=== PATIENT | female | born 1940 | race Caucasian/White ===

== ENCOUNTER 2025-03-07 12:29 | Observation (INO) | payer MEDICARE ==
[2025-03-07 14:18] LABS: BASOPHIL % 0.4 % (0.1-1.2); Basophil (Absolute #) 0.05 x10^3/uL (0.01-0.08); Eosinophil (Absolute #) 0.05 x10^3/uL (0.04-0.36); Hematocrit 45.4 % (34.1-44.9); Hemoglobin 14.9 g/dL (11.2-15.7); IMMATURE GRAN # 0.06 x10^3u/L (0.001-0.031); IMMATURE GRAN % 0.5 % (0.001-0.429); Lymphocyte (Absolute #) 1.00 x10^3/uL (1.18-3.74); Mean Corpuscular Hemoglobin 32.2 pg (25.6-32.2); Mean Corpuscular Hgb Concent. 32.8 g/dL (32.2-35.5); Monocyte (Absolute #) 0.73 x10^3/uL (0.24-0.86); NUCLEATED RBC # 0.00 x10^3u/L (0.00-0.012); NUCLEATED RBC % 0.0 % (0.00-0.2); Platelet Count 310 x10^3/uL (182-369); Red Blood Count 4.63 x10^6/uL (3.93-5.22); White Blood Count 11.7 x10^3/uL (3.98-10.04)
--- NOTE | 2025-03-07 14:39 | ERPHSYRPT ---
- History of Present Illness Time Seen by Provider: 03/07/25 13:40 Source: patient Exam Limitations: no limitations Patient Subjective Stated Complaint: Pt. states, "I feel like I'm sick to my stomach and could vomit. It also dinero when I try to pee.". daughter reports that pt. has early onset dementia and forgets to eat and drink. She believes pt. is dehydrated. Triage Nursing Assessment: Pt. arrives to room via W/C, attempted to void prior to going to room but could not produce any urine. Alert and Ox1, confused to place and time. Skin P/W/D, slightly tented. Physician History: Patient is an 84-year-old female history of hypertension and dementia presents to our ED for evaluation of nausea. No vomiting. Patient states her symptoms started yesterday and has gone into today. Patient describes dysuria as well. He family states that patient has poor p.o. intake. They believe that patient forgets to eat and drink. Daughter is a adjunct philosophy faculty and thinks that her mother is dehydrated. Patient denies pain. No fever. No back pain. No trauma. She voices no other complaints or concerns at this time. Patient declined pain medication. Portions of this note were created with voice recognition technology. There may be grammatical, spelling, punctuation or sound alike errors Timing/Duration: today Severity: moderate Modifying Factors: Improves With: nothing Associated Symptoms: denies symptoms Allergies/Adverse Reactions: No Known Drug Allergies Allergy (Unverified 03/07/25 12:59) Home Medications: Hydrochlorothiazide 25 mg [hydroDIURIL 25 MG] 25 mg PO DAILY 03/07/25 [History] Meloxicam 15 mg [Meloxicam 15 MG] 15 mg PO DAILY 03/07/25 [History] Metoprolol Tartrate 50 mg [Lopressor 50 MG] 50 mg PO DAILY 03/07/25 [History] Spironolactone 25 mg PO DAILY 03/07/25 [History] Hx Tetanus, Diphtheria Vaccination/Date Given: Yes Hx Influenza Vaccination/Date Given: Yes Hx Pneumococcal Vaccination/Date Given: Yes Immunizations Up to Date: Yes Travel Risk - International Travel Have you traveled outside of the country in past 3 weeks: No - Emerging Infectious Disease Are you exhibiting symptoms associated with any current EIDs: No - Review of Systems All Other Systems: Reviewed and Negative - Past Medical History Neurological History: Other Cardiac History: Hypertension Respiratory History: No Pertinent History Endocrine Medical History: No Pertinent History Musculoskeletal History: Osteoarthritis Other Medical History: PATIENT ORIENTED TO NAME, DATE OF AND LOCATION - KNEW SHE WAS AT THE HOSPITAL BUT DID NOT RECOGNIZE OR RECALL BEING IN THERAPY PREVIOUSLY. PATIENT WAS SEEN FOR 11 VISITS OF THERAPY IN OCTOBER 2023 DUE TO FALLS AND UNSTEADY GAIT. PATIENT NOT ORIENTED TO MONTH OR YEAR (REPORTED JULY AND SEASON WAS WINTER "THOUGH IT'S NOT BEEN A BAD WINTER" AND YEAR 1974. PATIENT DID KNOW AGE WAS 84 AND YEAR WAS 1940. PATIENT REPORTS INDEP WITH COOKING, CLEANING AND LAUNDRY. REPORTS FAMILY HELPS WITH GROCERY SHOPPING. PATIENT DOES NOT FEEL LIKE SHE NEEDS "TO DO THIS" AND "I WON'T BE HERE LONG BECAUSE I'M NOT GOING TO LET IT GET ME DOWN". - Past Surgical History Past Surgical History: Yes Gastrointestinal: Appendectomy, Cholecystectomy Female Surgical History: Section - Social History Smoking Status: Never smoker Exposure to second hand smoke: No Drug Use: none - Social Determinants of Health Will the patient participate in the screening: Declined to provide - Nursing Vital Signs Nursing Vital Signs: Initial Vital Signs Temperature 98.2 F 03/07/25 12:30 Pulse Rate 86 03/07/25 12:30 Respiratory Rate 14 03/07/25 12:30 Blood Pressure 153/86 03/07/25 12:30 O2 Sat by Pulse Oximetry 95 03/07/25 12:30 Pain Scale Pain Intensity 0 - Physical Exam General Appearance: no apparent distress, alert Eye Exam: PERRL/EOMI, eyes nml inspection Ears, Nose, Throat Exam: normal ENT inspection, pharynx normal, moist mucous membranes Neck Exam: normal inspection, full range of motion Respiratory Exam: normal breath sounds, lungs clear, airway intact, No respiratory distress Cardiovascular Exam: regular rate/rhythm, normal heart sounds, normal peripheral pulses Gastrointestinal/Abdomen Exam: soft, normal bowel sounds, No tenderness, No mass Back Exam: normal inspection, normal range of motion, No CVA tenderness, No vertebral tenderness Extremity Exam: normal inspection, normal range of motion, pelvis stable Neurologic Exam: alert, oriented x 3, cooperative, normal mood/affect, sensation nml, No motor deficits Skin Exam: normal color, warm, dry, No rash Lymphatic Exam: No adenopathy SpO2 Interpretation: normal SpO2: 95 O2 Delivery: Room Air - Course Nursing assessment & vital signs reviewed: Yes EKG Interpreted by Me: RATE (78), Sinus Rhythm, NORMAL AXIS, NORMAL INTERVALS, NORMAL QRS Ordered Tests: Active Orders 24 hr Category Date Time Status Asphalt Blender STAT Care 03/07/25 14:05 Active EKG-ER Only STAT Care 03/07/25 14:04 Active IV Insertion STAT Care 03/07/25 14:04 Active Pulse Oximetry (ED) STAT Care 03/07/25 14:04 Active CBC W DIFF Stat Lab 03/07/25 14:10 Completed CMP Stat Lab 03/07/25 14:10 Completed CULTURE,URINE Stat Lab 03/07/25 15:47 Received NT PRO BNPII Stat Lab 03/07/25 14:10 Completed TROPONIN Q4H Lab 03/07/25 14:10 Completed TROPONIN Q4H Lab 03/07/25 17:50 Received TROPONIN Q4H Lab 03/07/25 22:15 Ordered UA W/RFX UR CULTURE Stat Lab 03/07/25 15:47 Completed Transfer Order Routine Transfer 03/07/25 Ordered Medication Summary Generic Name Dose Route Start Last Admin Trade Name Freq PRN Reason Stop Dose Admin Sodium Chloride 1,000 mls @ 100 mls/hr 03/07/25 14:15 03/07/25 14:18 Sodium Chloride 0.9% 1000 Ml IV 04/06/25 14:14 100 mls/hr .Q10H CRISTINA Administration Discontinued Medications Generic Name Dose Route Start Last Admin Trade Name Freq PRN Reason Stop Dose Admin Ceftriaxone Sodium 1 gm in 100 mls @ 200 mls/hr 03/07/25 16:43 03/07/25 17:19 Rocephin 1 Gm / 100 Ml Nacl IV 03/07/25 17:12 Infused STAT ONE Infusion Ceftriaxone Sodium Confirm 03/07/25 16:45 Rocephin 1 Gm / 100 Ml Nacl Administered 03/07/25 16:46 Dose 1 gm in 100 mls @ ud IV .STK-MED ONE Lab/Rad Data: Laboratory Result Diagrams 03/07/25 14:10 03/07/25 14:10 Laboratory Results 03/07/25 03/07/25 03/07/25 Range/Units 15:47 14:10 14:10 WBC (3.98-10.04) x10^3/uL RBC (3.93-5.22) x10^6/uL Hgb (11.2-15.7) g/dL Hct (34.1-44.9) % MCV (79.4-94.8) fL MCH (25.6-32.2) pg MCHC (32.2-35.5) g/dL RDW (11.7-14.4) % Plt Count (182-369) x10^3/uL MPV (9.4-12.3) fL Gran % (34.0-71.1) % Immature Gran % (Auto) (0.001-0.429) % Nucleat RBC Rel Count (0.00-0.2) % Eos # (Auto) (0.04-0.36) x10^3/uL Immature Gran # (Auto) (0.001-0.031) x10^3u/L Absolute Lymphs (auto) (1.18-3.74) x10^3/uL Absolute Monos (auto) (0.24-0.86) x10^3/uL Absolute Nucleated RBC (0.00-0.012) x10^3u/L Lymphocytes % (19.3-51.7) % Monocytes % (4.7-12.5) % Eosinophils % (0.7-5.8) % Basophils % (0.1-1.2) % Absolute Granulocytes (1.56-6.13) x10^3/uL Basophils # (0.01-0.08) x10^3/uL Sodium 139 (135-145) mmol/L Potassium 4.0 (3.5-5.1) mmol/L Chloride 101 (98-107) mmol/L Carbon Dioxide 28 (22-30) mmol/L Anion Gap 13.5 (5-15) MEQ/L BUN 26 H (7-17) mg/dL Creatinine 1.30 H (0.52-1.04) mg/dL Estimated GFR 40.1 ML/MIN Glucose 110 H (74-106) mg/dL Calcium 9.9 (8.4-10.2) mg/dL Total Bilirubin 1.10 (0.2-1.3) mg/dL AST 31 (14-36) U/L ALT 22 (0-35) U/L Alkaline Phosphatase 87 (38-126) U/L Troponin I < 0.012 (0.000-0.033) ng/mL NT-Pro-B Natriuret Pep 590 (<300) pg/mL Serum Total Protein 6.7 (6.3-8.2) g/dL Albumin 4.2 (3.5-5.0) g/dL Urine Color Yellow (Yellow) Urine Appearance Cloudy A (Clear) Urine pH 5.5 (4.6-8.0) Ur Specific [place] 1.020 (1.005-1.030) Urine Protein 30 (Negative) Urine Glucose (UA) Negative (Negative) mg/dL Urine Ketones 15 A (Negative) Urine Blood Large A (Negative) Urine Nitrite Positive A (Negative) Urine Bilirubin Negative (Negative) Urine Urobilinogen 1.0 A (0.2) mg/dL Ur Leukocyte Esterase Small A (Negative) U Hyaline Cast (Auto) NONE SEEN (0-2) /LPF Urine Microscopic RBC >100 A (0-5) /HPF Urine Microscopic WBC 3-5 (0-5) /HPF Ur Epithelial Cells None Seen (None Seen) /HPF Urine Bacteria Many A (None Seen) /HPF Urine Culture Reflexed YES (NO) 03/07/25 Range/Units 14:10 WBC 11.7 H (3.98-10.04) x10^3/uL RBC 4.63 (3.93-5.22) x10^6/uL Hgb 14.9 (11.2-15.7) g/dL Hct 45.4 H (34.1-44.9) % MCV 98.1 H (79.4-94.8) fL MCH 32.2 (25.6-32.2) pg MCHC 32.8 (32.2-35.5) g/dL RDW 12.8 (11.7-14.4) % Plt Count 310 (182-369) x10^3/uL MPV 11.6 (9.4-12.3) fL Gran % 83.8 H (34.0-71.1) % Immature Gran % (Auto) 0.5 H (0.001-0.429) % Nucleat RBC Rel Count 0.0 (0.00-0.2) % Eos # (Auto) 0.05 (0.04-0.36) x10^3/uL Immature Gran # (Auto) 0.06 H (0.001-0.031) x10^3u/L Absolute Lymphs (auto) 1.00 L (1.18-3.74) x10^3/uL Absolute Monos (auto) 0.73 (0.24-0.86) x10^3/uL Absolute Nucleated RBC 0.00 (0.00-0.012) x10^3u/L Lymphocytes % 8.6 L (19.3-51.7) % Monocytes % 6.3 (4.7-12.5) % Eosinophils % 0.4 L (0.7-5.8) % Basophils % 0.4 (0.1-1.2) % Absolute Granulocytes 9.76 H (1.56-6.13) x10^3/uL Basophils # 0.05 (0.01-0.08) x10^3/uL Sodium (135-145) mmol/L Potassium (3.5-5.1) mmol/L Chloride (98-107) mmol/L Carbon Dioxide (22-30) mmol/L Anion Gap (5-15) MEQ/L BUN (7-17) mg/dL Creatinine (0.52-1.04) mg/dL Estimated GFR ML/MIN Glucose (74-106) mg/dL Calcium (8.4-10.2) mg/dL Total Bilirubin (0.2-1.3) mg/dL AST (14-36) U/L ALT (0-35) U/L Alkaline Phosphatase (38-126) U/L Troponin I (0.000-0.033) ng/mL NT-Pro-B Natriuret Pep (<300) pg/mL Serum Total Protein (6.3-8.2) g/dL Albumin (3.5-5.0) g/dL Urine Color (Yellow) Urine Appearance (Clear) Urine pH (4.6-8.0) Ur Specific [place] (1.005-1.030) Urine Protein (Negative) Urine Glucose (UA) (Negative) mg/dL Urine Ketones (Negative) Urine Blood (Negative) Urine Nitrite (Negative) Urine Bilirubin (Negative) Urine Urobilinogen (0.2) mg/dL Ur Leukocyte Esterase (Negative) U Hyaline Cast (Auto) (0-2) /LPF Urine Microscopic RBC (0-5) /HPF Urine Microscopic WBC (0-5) /HPF Ur Epithelial Cells (None Seen) /HPF Urine Bacteria (None Seen) /HPF Urine Culture Reflexed (NO) - Progress Progress: improved Progress Note: Patient is an 84-year-old female history of hypertension and dementia presents to our ED for evaluation of nausea. No vomiting. Physical exam shows a frail appearing female. However she is alert and oriented x 4. Patient in no distress. Workup revealed a significant urinary tract infection. Rocephin administered. Patient is dehydrated with acute renal injury. IV fluids infusing. Has a leukocytosis of 11. Creatinine increased from 0.88-1.30. Patient will require hospitalization for IV antibiotics and hydration. Plan of care discussed with patient and her daughter who is at the bedside. They agree to admission at [facility] for further evaluation and treatment. Patient declined pain medication. Portions of this note were created with voice recognition technology. There may be grammatical, spelling, punctuation or sound alike errors History obtained from patient and daughter who is at the bedside. Differential diagnosis includes UTI, pyelonephritis, sepsis, dehydration Complexity of problem addressed is moderate acute complicated. No critical care time. Complex of data reviewed and analyzed as extensive. Test ordered test reviewed results analyzed and interpreted by Dr. Gerard. Results were correlated clinically with history and physical exam. Management discussed with hospitalist who accepts admission to observation. Risk of complication and or risk of morbidity/mortality of patient management is high. Patient requires hospitalization for further evaluation and treatment. Vital stable. Time spent admit patient is approximately 15 minutes. Plan of care established for shared decision making. No social determinants of health present to impede follow-up. Portions of this note were created with voice recognition technology. There may be grammatical, spelling, punctuation or sound alike errors 03/07/25 17:40 : Accepts admission at 5:55 PM 03/07/25 17:55 Counseled pt/family regarding: diagnosis, need for follow-up - Departure Departure Disposition: Observation Clinical Impression: Dehydration, UTI (urinary tract infection), Nausea, Generalized weakness, Leukocytosis Condition: Stable Critical Care Time: No Referrals: KIERSTEN ALCANTARA, LUCERO [Primary Care Provider, [facility]] - Follow up/PCP as directed
[2025-03-07 14:40] LABS: NT PRO BNPII 590 pg/mL (<300); TROPONIN < 0.012 ng/mL (0.000-0.033)
[2025-03-07 14:49] LABS: Calcium 9.9 mg/dL (8.4-10.2); Carbon Dioxide 28.0 mmol/L (22-30); Creatinine 1 1.3 mg/dL (0.52-1.04); EST GLOMERULAR FILTRATION RATE 40.1 ML/MIN; Glucose 110.0 mg/dL (74-106); Potassium 4.0 mmol/L (3.5-5.1); SGOT/AST 31.0 U/L (14-36); SGPT/ALT 22.0 U/L (0-35); Total Protein 6.7 g/dL (6.3-8.2)
[2025-03-07 16:13] LABS: Glucose, Urine Negative (Negative); Protein,Urine Dip 30 (Negative)
[2025-03-07 16:14] LABS: RBC >100 /HPF (0-5)
[2025-03-07] MEDS ORDERED: ROCEPHIN 1 GM / 100 ML NaCl 1 GM/100 ML IVPB IV ONE (16:45)
[2025-03-07] MEDS: ROCEPHIN 1 GM / 100 ML NaCl 1 GM/100 ML IVPB IV ONE (16:46)
--- NOTE | 2025-03-07 19:40 | PCM.HP ---
History of Present Illness - Chief Complaint Chief Complaint: Generalized weakness, urinary tract infection History of Present Illness: is a 84 year old female from home with PMH of hypertension, dementia, OA, recurrent falls/unsteady gait presented due to nausea decreased oral intake, and dysuria. Patient was reporting that she felt nauseaous and felt like vomiting. She denies actually vomiting. It is unclear when the patient's symptoms started as she has dementia and is not able to provide a reliable history. She thinks symptoms started earlier today but at bedside said she's been unwell for 3 days. He said she fell last Thursday when her legs gave out. She did not lose consciousness before or after the fall. Patient does not recall having a fall. She was accompanied earlier in that ER by her daughter who had concerns that the patient was forgetting to eat and drink and appeared dehydrated. Patient denies having fever, chills, cough, chest pain, abdominal pain, diarrhea, constipation, melena, rectal bleeding. Denies any recent trauma, injuries or falls. She was noted to have elevated creatinine in the ER of 1.3 while baseline is around 0.9. CBC was notable for leukocytosis of 11.7 Also was started on ceftriaxone for UTI. Has otherwise been hemodynamically stable. - Review of Systems Constitutional: Lethargy, Weakness Eyes: No Symptoms Ears, Nose, & Throat: No Symptoms Respiratory: No Symptoms Cardiac: No Symptoms Abdominal/Gastrointestinal: No Symptoms, Nausea, Appetite Changes Genitourinary Symptoms: Dysuria, Frequency Musculoskeletal: Fall Skin: No Symptoms Neurological: Lethargy Psychological: No Symptoms Endocrine: No Symptoms Hematologic/Lymphatic: No Symptoms Immunological/Allergic: No Symptoms All Other Systems: Reviewed and Negative Medications & Allergies Home Medications: Home Medication List Hydrochlorothiazide 25 mg [hydroDIURIL 25 MG] 25 mg PO DAILY 03/07/25 [History Confirmed 03/07/25] Meloxicam 15 mg [Meloxicam 15 MG] 15 mg PO DAILY 03/07/25 [History Confirmed 03/07/25] Metoprolol Tartrate 50 mg [Lopressor 50 MG] 50 mg PO DAILY 03/07/25 [History Confirmed 03/07/25] Spironolactone 25 mg PO DAILY 03/07/25 [History Confirmed 03/07/25] Allergies/Adverse Reactions: Allergies Allergy/AdvReac Type Severity Reaction Status Date / Time No Known Drug Allergies Allergy Unverified 03/07/25 12:59 - Past Medical History Past Medical History: Yes Neurological History: Other ENT History: No Pertinent History Cardiac History: Hypertension Respiratory History: No Pertinent History Endocrine Medical History: No Pertinent History Musculoskelatal History: Osteoarthritis GI Medical History: No Pertinent History History: No Pertinent History Pyscho-Social History: No Pertinent History Reproductive Disorders: No Pertinent History Comment: PATIENT ORIENTED TO NAME, DATE OF AND LOCATION - KNEW SHE WAS AT THE HOSPITAL BUT DID NOT RECOGNIZE OR RECALL BEING IN THERAPY PREVIOUSLY. PATIENT WAS SEEN FOR 11 VISITS OF THERAPY IN OCTOBER 2023 DUE TO FALLS AND UNSTEADY GAIT. PATIENT NOT ORIENTED TO MONTH OR YEAR (REPORTED JULY AND SEASON WAS WINTER "THOUGH IT'S NOT BEEN A BAD WINTER" AND YEAR 1974. PATIENT DID KNOW AGE WAS 84 AND YEAR WAS 1940. PATIENT REPORTS INDEP WITH COOKING, CLEANING AND LAUNDRY. REPORTS FAMILY HELPS WITH GROCERY SHOPPING. PATIENT DOES NOT FEEL LIKE SHE NEEDS "TO DO THIS" AND "I WON'T BE HERE LONG BECAUSE I'M NOT GOING TO LET IT GET ME DOWN". - Past Surgical History Past Surgical History: Yes Neuro Surgical History: No Pertinent History Cardiac History: No Pertinent History Respiratory Surgery: No Pertinent History GI Surgical History: Appendectomy, Cholecystectomy Genitourinary Surgical Hx: No Pertinent History Musculskeletal Surgical Hx: No Pertinent History Female Surgical History: Section - Social History Smoking Status: Never smoker Exposure to second hand smoke: No Alcohol: None Drug Use: none - Social Determinants of Health Will the patient participate in the screening: Declined to provide - Physical Exam Vital Signs: Vital Signs - 24 hr Temp Pulse Resp BP BP Pulse Ox 03/07/25 18:37 98.2 F 92 H 16 141/70 96 03/07/25 18:00 93 H 23 145/79 96 03/07/25 17:56 95 03/07/25 17:30 90 25 H 153/92 98 03/07/25 17:00 87 20 133/77 96 03/07/25 16:31 85 23 155/74 96 03/07/25 16:01 82 19 143/98 97 03/07/25 15:30 85 27 H 160/81 95 03/07/25 15:00 82 22 145/88 03/07/25 14:30 80 27 H 159/90 95 03/07/25 14:04 95 03/07/25 14:01 76 25 H 152/107 97 03/07/25 13:30 75 22 162/100 162/100 95 03/07/25 13:00 81 25 H 148/106 97 03/07/25 12:30 98.2 F 86 14 153/86 95 General Appearance: no apparent distress Neurologic Exam: alert, cooperative, normal mood/affect, disoriented, confusion Eye Exam: PERRL/EOMI, eyes nml inspection Ears, Nose, Throat Exam: moist mucous membranes Neck Exam: normal inspection Respiratory Exam: normal breath sounds, lungs clear Cardiovascular Exam: regular rate/rhythm, normal heart sounds Gastrointestinal/Abdomen Exam: soft, normal bowel sounds Back Exam: normal inspection Extremity Exam: normal inspection Skin Exam: normal color Results - Labs Lab/Micro Results: Lab Results-Last 24 Hours 03/07/25 03/07/25 03/07/25 Range/Units 14:10 14:10 14:10 WBC 11.7 H (3.98-10.04) x10^3/uL RBC 4.63 (3.93-5.22) x10^6/uL Hgb 14.9 (11.2-15.7) g/dL Hct 45.4 H (34.1-44.9) % MCV 98.1 H (79.4-94.8) fL MCH 32.2 (25.6-32.2) pg MCHC 32.8 (32.2-35.5) g/dL RDW 12.8 (11.7-14.4) % Plt Count 310 (182-369) x10^3/uL MPV 11.6 (9.4-12.3) fL Gran % 83.8 H (34.0-71.1) % Immature Gran % (Auto) 0.5 H (0.001-0.429) % Nucleat RBC Rel Count 0.0 (0.00-0.2) % Eos # (Auto) 0.05 (0.04-0.36) x10^3/uL Immature Gran # (Auto) 0.06 H (0.001-0.031) x10^3u/L Absolute Lymphs (auto) 1.00 L (1.18-3.74) x10^3/uL Absolute Monos (auto) 0.73 (0.24-0.86) x10^3/uL Absolute Nucleated RBC 0.00 (0.00-0.012) x10^3u/L Lymphocytes % 8.6 L (19.3-51.7) % Monocytes % 6.3 (4.7-12.5) % Eosinophils % 0.4 L (0.7-5.8) % Basophils % 0.4 (0.1-1.2) % Absolute Granulocytes 9.76 H (1.56-6.13) x10^3/uL Basophils # 0.05 (0.01-0.08) x10^3/uL Sodium 139 (135-145) mmol/L Potassium 4.0 (3.5-5.1) mmol/L Chloride 101 (98-107) mmol/L Carbon Dioxide 28 (22-30) mmol/L Anion Gap 13.5 (5-15) MEQ/L BUN 26 H (7-17) mg/dL Creatinine 1.30 H (0.52-1.04) mg/dL Estimated GFR 40.1 ML/MIN Glucose 110 H (74-106) mg/dL Calcium 9.9 (8.4-10.2) mg/dL Total Bilirubin 1.10 (0.2-1.3) mg/dL AST 31 (14-36) U/L ALT 22 (0-35) U/L Alkaline Phosphatase 87 (38-126) U/L Troponin I < 0.012 (0.000-0.033) ng/mL NT-Pro-B Natriuret Pep 590 (<300) pg/mL Serum Total Protein 6.7 (6.3-8.2) g/dL Albumin 4.2 (3.5-5.0) g/dL Urine Color (Yellow) Urine Appearance (Clear) Urine pH (4.6-8.0) Ur Specific [place] (1.005-1.030) Urine Protein (Negative) Urine Glucose (UA) (Negative) mg/dL Urine Ketones (Negative) Urine Blood (Negative) Urine Nitrite (Negative) Urine Bilirubin (Negative) Urine Urobilinogen (0.2) mg/dL Ur Leukocyte Esterase (Negative) U Hyaline Cast (Auto) (0-2) /LPF Urine Microscopic RBC (0-5) /HPF Urine Microscopic WBC (0-5) /HPF Ur Epithelial Cells (None Seen) /HPF Urine Bacteria (None Seen) /HPF Urine Culture Reflexed (NO) 03/07/25 03/07/25 Range/Units 15:47 17:50 WBC (3.98-10.04) x10^3/uL RBC (3.93-5.22) x10^6/uL Hgb (11.2-15.7) g/dL Hct (34.1-44.9) % MCV (79.4-94.8) fL MCH (25.6-32.2) pg MCHC (32.2-35.5) g/dL RDW (11.7-14.4) % Plt Count (182-369) x10^3/uL MPV (9.4-12.3) fL Gran % (34.0-71.1) % Immature Gran % (Auto) (0.001-0.429) % Nucleat RBC Rel Count (0.00-0.2) % Eos # (Auto) (0.04-0.36) x10^3/uL Immature Gran # (Auto) (0.001-0.031) x10^3u/L Absolute Lymphs (auto) (1.18-3.74) x10^3/uL Absolute Monos (auto) (0.24-0.86) x10^3/uL Absolute Nucleated RBC (0.00-0.012) x10^3u/L Lymphocytes % (19.3-51.7) % Monocytes % (4.7-12.5) % Eosinophils % (0.7-5.8) % Basophils % (0.1-1.2) % Absolute Granulocytes (1.56-6.13) x10^3/uL Basophils # (0.01-0.08) x10^3/uL Sodium (135-145) mmol/L Potassium (3.5-5.1) mmol/L Chloride (98-107) mmol/L Carbon Dioxide (22-30) mmol/L Anion Gap (5-15) MEQ/L BUN (7-17) mg/dL Creatinine (0.52-1.04) mg/dL Estimated GFR ML/MIN Glucose (74-106) mg/dL Calcium (8.4-10.2) mg/dL Total Bilirubin (0.2-1.3) mg/dL AST (14-36) U/L ALT (0-35) U/L Alkaline Phosphatase (38-126) U/L Troponin I < 0.012 (0.000-0.033) ng/mL NT-Pro-B Natriuret Pep (<300) pg/mL Serum Total Protein (6.3-8.2) g/dL Albumin (3.5-5.0) g/dL Urine Color Yellow (Yellow) Urine Appearance Cloudy A (Clear) Urine pH 5.5 (4.6-8.0) Ur Specific [place] 1.020 (1.005-1.030) Urine Protein 30 (Negative) Urine Glucose (UA) Negative (Negative) mg/dL Urine Ketones 15 A (Negative) Urine Blood Large A (Negative) Urine Nitrite Positive A (Negative) Urine Bilirubin Negative (Negative) Urine Urobilinogen 1.0 A (0.2) mg/dL Ur Leukocyte Esterase Small A (Negative) U Hyaline Cast (Auto) NONE SEEN (0-2) /LPF Urine Microscopic RBC >100 A (0-5) /HPF Urine Microscopic WBC 3-5 (0-5) /HPF Ur Epithelial Cells None Seen (None Seen) /HPF Urine Bacteria Many A (None Seen) /HPF Urine Culture Reflexed YES (NO) Assessment/Plan (1) UTI (urinary tract infection) Current Visit: Yes Status: Acute Qualifiers: Urinary tract infection type: acute cystitis Hematuria presence: with hematuria Qualified Code(s): N30.01 - Acute cystitis with hematuria Assessment & Plan: Continue ceftriaxone Follow-up urine culture Code(s): N39.0 - URINARY TRACT INFECTION, SITE NOT SPECIFIED (2) LORAINE (acute kidney injury) Current Visit: Yes Status: Acute Assessment & Plan: Likely 2/2 hypovolemia and dehydration IV fluids Monitor I&Os Avoid nephrotoxic medications Code(s): N17.9 - ACUTE KIDNEY FAILURE, UNSPECIFIED (3) Essential (primary) hypertension Current Visit: Yes Status: Chronic Assessment & Plan: Continue oral antihypertensives Code(s): I10 - ESSENTIAL (PRIMARY) HYPERTENSION (4) Generalized weakness Current Visit: Yes Status: Acute Assessment & Plan: PT/OT evaluation Code(s): R53.1 - WEAKNESS (5) Frequent falls Current Visit: Yes Status: Acute Assessment & Plan: PT/OT evaluation Code(s): R29.6 - REPEATED FALLS (6) Nausea Current Visit: Yes Status: Acute Assessment & Plan: Zofran PRN, supportive care Advance diet as tolerated Code(s): R11.0 - NAUSEA (7) Leukocytosis Current Visit: Yes Status: Acute Qualifiers: Leukocytosis type: unspecified Qualified Code(s): D72.829 - Elevated white blood cell count, unspecified Code(s): D72.829 - ELEVATED WHITE BLOOD CELL COUNT, UNSPECIFIED (8) Dementia Current Visit: Yes Status: Chronic Qualifiers: Dementia type: unspecified type Dementia severity: unspecified severity Dementia behavioral or psychological symptom: without behavioral, psychotic, or mood disturbance or anxiety Qualified Code(s): F03.90 - Unspecified dementia, unspecified severity, without behavioral disturbance, psychotic disturbance, mood disturbance, and anxiety Assessment & Plan: Suspected by family - no formal diagnosis Diet as tolerated Heparin for DVT PPx Full Code Code(s): F03.90 - UNSP DEMENTIA, UNSP SEVERITY, WITHOUT BEH/PSYCH/MOOD/ANX Telemedicine Encounter - Telemedicine Encounter Telemedicine Encounter: "The entirety of this encounter was performed via Telemedicine" This visit was performed using real-time audio and video connection between my location and thepatients locationwith the assistance of a surrogateat the patients location. Written or verbal consent was obtained from the patient/guardian to perform this visit usingst. [facility] cent[facility] technology. Any patient questions regarding the telemedicine interaction were answered.
[2025-03-07] MEDS ORDERED: Zofran 4 MG/2 ML VIAL IV PRN (19:56)
[2025-03-07] MEDS: HEPARIN 5000 UNITS/0.5 ML (HIGH RISK MED) SQ SCH (22:31)
--- NOTE | 2025-03-08 05:33 | PCM.NOTE ---
Date and Time: 03/08/25 0528 Subjective Assessment: Ms. Hutchinson is an 84-year-old female from home with a past medical history of hypertension, dementia, osteoarthritis, and recurrent falls with gait instability. She presented with nausea, decreased oral intake, and dysuria. History is limited by dementia; she recalls symptoms beginning earlier today, though her reports she has been unwell for the past three days and suffered a fall on Thursday when her legs gave out, without reported loss of consciousness. She does not recall this event. Her daughter also noted concerns for decreased eating and drinking, suggesting possible dehydration. She denies fever, chills, cough, chest pain, abdominal pain, diarrhea, constipation, or bleeding. In the emergency department, she was afebrile and hemodynamically stable. Laboratory evaluation revealed leukocytosis at 11.7, elevated creatinine of 1.3 compared to her baseline of 0.9, and urinalysis consistent with infection. She was empirically started on ceftriaxone. CBC otherwise unremarkable. Imaging to date has not revealed acute pathology. The clinical picture is consistent with acute cystitis with hematuria complicated by mild acute kidney injury, likely secondary to dehydration. She also demonstrates generalized weakness, ongoing nausea, and a history of recurrent falls in the setting of chronic dementia. 03/08/25: Patient feeling better this morning although still endorses weakness. She denies nausea. Hypokalemia on labs this morning WBC now wnl at 8.7 and LORAINE has resolved. Will continue IV abx overnight. Ucult with gram - ID currently pending sensitivity. - Review of Systems Constitutional: Fatigue, Weakness Eyes: No Symptoms Ears, Nose, & Throat: No Symptoms Respiratory: No Symptoms Cardiac: No Symptoms Abdominal/Gastrointestinal: No Symptoms Genitourinary Symptoms: No Symptoms Musculoskeletal: No Symptoms Skin: No Symptoms Neurological: No Symptoms Psychological: No Symptoms Endocrine: No Symptoms Hematologic/Lymphatic: No Symptoms Immunological/Allergic: No Symptoms Objective Exam General Appearance: no apparent distress Neurologic Exam: alert, oriented x 3, cooperative Skin Exam: normal color Eye Exam: PERRL Ears, Nose, Throat Exam: normal ENT inspection Neck Exam: normal inspection Respiratory Exam: normal breath sounds, lungs clear Cardiovascular Exam: regular rate/rhythm, normal heart sounds Gastrointestinal/Abdomen Exam: soft, normal bowel sounds Extremity Exam: normal inspection Back Exam: normal inspection Pelvic Exam: deferred Rectal Exam: deferred Objective Data Vital Signs: Vital Signs - 24 hr Temp Pulse Resp BP BP Pulse Ox 03/08/25 03:00 99.0 F 77 16 139/69 93 L 03/07/25 23:56 99.3 F 82 18 168/89 96 03/07/25 19:56 98.7 F 92 H 16 141/78 97 03/07/25 18:37 98.2 F 92 H 16 141/70 96 03/07/25 18:00 93 H 23 145/79 96 03/07/25 17:56 95 03/07/25 17:30 90 25 H 153/92 98 03/07/25 17:00 87 20 133/77 96 03/07/25 16:31 85 23 155/74 96 03/07/25 16:01 82 19 143/98 97 03/07/25 15:30 85 27 H 160/81 95 03/07/25 15:00 82 22 145/88 03/07/25 14:30 80 27 H 159/90 95 03/07/25 14:04 95 03/07/25 14:01 76 25 H 152/107 97 03/07/25 13:30 75 22 162/100 162/100 95 03/07/25 13:00 81 25 H 148/106 97 03/07/25 12:30 98.2 F 86 14 153/86 95 Pain Assessment - Last Documented Pain Intensity 0 Intake and Output: Intake & Output 03/05/25 03/06/25 03/07/25 03/08/25 11:59 11:59 11:59 11:59 Intake Total 180 Balance 180 Weight 61.4 kg Lab Results: Lab Results-Last 24 Hours 03/07/25 03/07/25 03/07/25 Range/Units 14:10 14:10 14:10 WBC 11.7 H (3.98-10.04) x10^3/uL RBC 4.63 (3.93-5.22) x10^6/uL Hgb 14.9 (11.2-15.7) g/dL Hct 45.4 H (34.1-44.9) % MCV 98.1 H (79.4-94.8) fL MCH 32.2 (25.6-32.2) pg MCHC 32.8 (32.2-35.5) g/dL RDW 12.8 (11.7-14.4) % Plt Count 310 (182-369) x10^3/uL MPV 11.6 (9.4-12.3) fL Gran % 83.8 H (34.0-71.1) % Immature Gran % (Auto) 0.5 H (0.001-0.429) % Nucleat RBC Rel Count 0.0 (0.00-0.2) % Eos # (Auto) 0.05 (0.04-0.36) x10^3/uL Immature Gran # (Auto) 0.06 H (0.001-0.031) x10^3u/L Absolute Lymphs (auto) 1.00 L (1.18-3.74) x10^3/uL Absolute Monos (auto) 0.73 (0.24-0.86) x10^3/uL Absolute Nucleated RBC 0.00 (0.00-0.012) x10^3u/L Lymphocytes % 8.6 L (19.3-51.7) % Monocytes % 6.3 (4.7-12.5) % Eosinophils % 0.4 L (0.7-5.8) % Basophils % 0.4 (0.1-1.2) % Absolute Granulocytes 9.76 H (1.56-6.13) x10^3/uL Basophils # 0.05 (0.01-0.08) x10^3/uL Sodium 139 (135-145) mmol/L Potassium 4.0 (3.5-5.1) mmol/L Chloride 101 (98-107) mmol/L Carbon Dioxide 28 (22-30) mmol/L Anion Gap 13.5 (5-15) MEQ/L BUN 26 H (7-17) mg/dL Creatinine 1.30 H (0.52-1.04) mg/dL Estimated GFR 40.1 ML/MIN Glucose 110 H (74-106) mg/dL Calcium 9.9 (8.4-10.2) mg/dL Total Bilirubin 1.10 (0.2-1.3) mg/dL AST 31 (14-36) U/L ALT 22 (0-35) U/L Alkaline Phosphatase 87 (38-126) U/L Troponin I < 0.012 (0.000-0.033) ng/mL NT-Pro-B Natriuret Pep 590 (<300) pg/mL Serum Total Protein 6.7 (6.3-8.2) g/dL Albumin 4.2 (3.5-5.0) g/dL Urine Color (Yellow) Urine Appearance (Clear) Urine pH (4.6-8.0) Ur Specific [place] (1.005-1.030) Urine Protein (Negative) Urine Glucose (UA) (Negative) mg/dL Urine Ketones (Negative) Urine Blood (Negative) Urine Nitrite (Negative) Urine Bilirubin (Negative) Urine Urobilinogen (0.2) mg/dL Ur Leukocyte Esterase (Negative) U Hyaline Cast (Auto) (0-2) /LPF Urine Microscopic RBC (0-5) /HPF Urine Microscopic WBC (0-5) /HPF Ur Epithelial Cells (None Seen) /HPF Urine Bacteria (None Seen) /HPF Urine Culture Reflexed (NO) 03/07/25 03/07/25 03/07/25 Range/Units 15:47 17:50 22:05 WBC (3.98-10.04) x10^3/uL RBC (3.93-5.22) x10^6/uL Hgb (11.2-15.7) g/dL Hct (34.1-44.9) % MCV (79.4-94.8) fL MCH (25.6-32.2) pg MCHC (32.2-35.5) g/dL RDW (11.7-14.4) % Plt Count (182-369) x10^3/uL MPV (9.4-12.3) fL Gran % (34.0-71.1) % Immature Gran % (Auto) (0.001-0.429) % Nucleat RBC Rel Count (0.00-0.2) % Eos # (Auto) (0.04-0.36) x10^3/uL Immature Gran # (Auto) (0.001-0.031) x10^3u/L Absolute Lymphs (auto) (1.18-3.74) x10^3/uL Absolute Monos (auto) (0.24-0.86) x10^3/uL Absolute Nucleated RBC (0.00-0.012) x10^3u/L Lymphocytes % (19.3-51.7) % Monocytes % (4.7-12.5) % Eosinophils % (0.7-5.8) % Basophils % (0.1-1.2) % Absolute Granulocytes (1.56-6.13) x10^3/uL Basophils # (0.01-0.08) x10^3/uL Sodium (135-145) mmol/L Potassium (3.5-5.1) mmol/L Chloride (98-107) mmol/L Carbon Dioxide (22-30) mmol/L Anion Gap (5-15) MEQ/L BUN (7-17) mg/dL Creatinine (0.52-1.04) mg/dL Estimated GFR ML/MIN Glucose (74-106) mg/dL Calcium (8.4-10.2) mg/dL Total Bilirubin (0.2-1.3) mg/dL AST (14-36) U/L ALT (0-35) U/L Alkaline Phosphatase (38-126) U/L Troponin I < 0.012 0.015 (0.000-0.033) ng/mL NT-Pro-B Natriuret Pep (<300) pg/mL Serum Total Protein (6.3-8.2) g/dL Albumin (3.5-5.0) g/dL Urine Color Yellow (Yellow) Urine Appearance Cloudy A (Clear) Urine pH 5.5 (4.6-8.0) Ur Specific [place] 1.020 (1.005-1.030) Urine Protein 30 (Negative) Urine Glucose (UA) Negative (Negative) mg/dL Urine Ketones 15 A (Negative) Urine Blood Large A (Negative) Urine Nitrite Positive A (Negative) Urine Bilirubin Negative (Negative) Urine Urobilinogen 1.0 A (0.2) mg/dL Ur Leukocyte Esterase Small A (Negative) U Hyaline Cast (Auto) NONE SEEN (0-2) /LPF Urine Microscopic RBC >100 A (0-5) /HPF Urine Microscopic WBC 3-5 (0-5) /HPF Ur Epithelial Cells None Seen (None Seen) /HPF Urine Bacteria Many A (None Seen) /HPF Urine Culture Reflexed YES (NO) Medications: Medications Generic Name Dose Route Start Last Admin Trade Name Freq PRN Reason Stop Dose Admin Acetaminophen 650 mg 03/07/25 19:56 Acetaminophen 325 Mg Tablet PO 04/06/25 19:55 Q6H PRN PRN PAIN, FEVER, HEADACHE Heparin Sodium (Beef Lung) 5,000 unit 03/07/25 22:00 03/07/25 22:31 Heparin 5000 Units/0.5 Ml 5,000 Unit/0.5 Ml Syr SQ 04/06/25 21:59 5,000 unit BID CRISTINA Administration Sodium Chloride 1,000 mls @ 100 mls/hr 03/07/25 20:00 Sodium Chloride 0.9% 1000 Ml IV 04/06/25 19:59 .Q10H CRISTINA Ceftriaxone Sodium 1 gm in 100 mls @ 200 mls/hr 03/08/25 10:00 Rocephin 1 Gm / 100 Ml Nacl IV 04/07/25 09:59 Q24H10 CRISTINA Ondansetron HCl 4 mg 03/07/25 19:56 Ondansetron Hcl 4 Mg/2 Ml Vial IV 04/06/25 19:55 Q6H PRN PRN NAUSEA/VOMITING Discontinued Medications Generic Name Dose Route Start Last Admin Trade Name Freq PRN Reason Stop Dose Admin Sodium Chloride 1,000 mls @ 100 mls/hr 03/07/25 14:15 03/07/25 14:18 Sodium Chloride 0.9% 1000 Ml IV 04/06/25 14:14 100 mls/hr .Q10H CRISTINA Administration Ceftriaxone Sodium 1 gm in 100 mls @ 200 mls/hr 03/07/25 16:43 03/07/25 17:19 Rocephin 1 Gm / 100 Ml Nacl IV 03/07/25 17:12 Infused STAT ONE Infusion Ceftriaxone Sodium Confirm 03/07/25 16:45 Rocephin 1 Gm / 100 Ml Nacl Administered 03/07/25 16:46 Dose 1 gm in 100 mls @ ud IV .STK-MED ONE Sodium Chloride Confirm 03/07/25 14:10 Sodium Chloride 0.9% 1000 Ml Administered 03/07/25 14:11 Dose 1,000 mls @ ud .ROUTE .STK-MED ONE Assessment/Plan (1) UTI (urinary tract infection) Current Visit: Yes Status: Acute Qualifiers: Urinary tract infection type: acute cystitis Hematuria presence: with hematuria Qualified Code(s): N30.01 - Acute cystitis with hematuria Assessment & Plan: -Continue empiric ceftriaxone follow urine culture/sensitivities -Ucult with gram - ID -CBC reviewed -Encourage hydration as tolerated. Code(s): N39.0 - URINARY TRACT INFECTION, SITE NOT SPECIFIED (2) LORAINE (acute kidney injury) Current Visit: Yes Status: Acute Assessment & Plan: -IV fluids with close monitoring of volume status. -CMP/CBC reviewed creat now WNL at 0.87 -Monitor strict I&Os. -Avoid nephrotoxic agents (NSAIDs, IV contrast, high-dose diuretics). Code(s): N17.9 - ACUTE KIDNEY FAILURE, UNSPECIFIED (3) Frequent falls Current Visit: Yes Status: Acute Assessment & Plan: -PT/OT for gait training and fall risk reduction - patient participating in OP PT currently -Review medications contributing to orthostasis or sedation. Code(s): R29.6 - REPEATED FALLS (4) Generalized weakness Current Visit: Yes Status: Acute Assessment & Plan: -PT/OT evaluation for functional status and safe mobility. -Encourage mobilization with staff assistance to reduce deconditioning. -Monitor orthostatic vitals given fall risk and dehydration. Code(s): R53.1 - WEAKNESS (5) Leukocytosis Current Visit: Yes Status: Acute Qualifiers: Leukocytosis type: unspecified Qualified Code(s): D72.829 - Elevated white blood cell count, unspecified Assessment & Plan: -Continue Ceftriaxone -CBC reviewed now WNL at 8.7 -Monitor for systemic signs of sepsis. -Reassess once culture results available; de-escalate antibiotics when appropriate. Code(s): D72.829 - ELEVATED WHITE BLOOD CELL COUNT, UNSPECIFIED (6) Nausea Current Visit: Yes Status: Acute Assessment & Plan: -Advance diet as tolerated, encourage small frequent meals - nausea resolved -Monitor for worsening abdominal pain, which may suggest alternative pathology. Code(s): R11.0 - NAUSEA (7) Dementia Current Visit: Yes Status: Chronic Qualifiers: Dementia type: unspecified type Dementia severity: unspecified severity Dementia behavioral or psychological symptom: without behavioral, psychotic, or mood disturbance or anxiety Qualified Code(s): F03.90 - Unspecified dementia, unspecified severity, without behavioral disturbance, psychotic disturbance, mood disturbance, and anxiety Assessment & Plan: -Supportive care, optimize environment for orientation. Code(s): F03.90 - UNSP DEMENTIA, UNSP SEVERITY, WITHOUT BEH/PSYCH/MOOD/ANX (8) Essential (primary) hypertension Current Visit: Yes Status: Chronic Assessment & Plan: -Continue home antihypertensives as tolerated, holding if hypotension develops during rehydration. -Monitor BP closely, especially while correcting volume status. -Reinforce outpatient follow-up with PCP for long-term BP management. VTE: Heparin Dispo: 1-2 days Code status: Full code Plan of care time spent > 35 mins Code(s): I10 - ESSENTIAL (PRIMARY) HYPERTENSION
[2025-03-08 05:39] LABS: BASOPHIL % 0.2 % (0.1-1.2); Basophil (Absolute #) 0.02 x10^3/uL (0.01-0.08); Eosinophil (Absolute #) 0.13 x10^3/uL (0.04-0.36); Hematocrit 38.9 % (34.1-44.9); Hemoglobin 12.7 g/dL (11.2-15.7); IMMATURE GRAN # 0.03 x10^3u/L (0.001-0.031); IMMATURE GRAN % 0.3 % (0.001-0.429); Lymphocyte (Absolute #) 1.40 x10^3/uL (1.18-3.74); Mean Corpuscular Hemoglobin 31.8 pg (25.6-32.2); Mean Corpuscular Hgb Concent. 32.6 g/dL (32.2-35.5); Monocyte (Absolute #) 0.73 x10^3/uL (0.24-0.86); NUCLEATED RBC # 0.00 x10^3u/L (0.00-0.012); NUCLEATED RBC % 0.0 % (0.00-0.2); Platelet Count 258 x10^3/uL (182-369); Red Blood Count 4.00 x10^6/uL (3.93-5.22); White Blood Count 8.7 x10^3/uL (3.98-10.04)
[2025-03-08 05:51] LABS: Calcium 8.9 mg/dL (8.4-10.2); Carbon Dioxide 26.0 mmol/L (22-30); Creatinine 1 0.87 mg/dL (0.52-1.04); EST GLOMERULAR FILTRATION RATE 64.8 ML/MIN; Glucose 90.0 mg/dL (74-106); Potassium 3.4 mmol/L (3.5-5.1); SGOT/AST 24.0 U/L (14-36); SGPT/ALT 17.0 U/L (0-35); Total Protein 5.3 g/dL (6.3-8.2)
[2025-03-08] MEDS: Klor Con PO SCH (10:11)
[2025-03-08] MEDS: ROCEPHIN 1 GM / 100 ML NaCl 1 GM/100 ML IVPB IV SCH (10:46)
[2025-03-08] MEDS: TYLENOL 325 MG PO PRN (15:15)
[2025-03-09 05:07] LABS: BASOPHIL % 0.5 % (0.1-1.2); Basophil (Absolute #) 0.04 x10^3/uL (0.01-0.08); Eosinophil (Absolute #) 0.20 x10^3/uL (0.04-0.36); Hematocrit 38.2 % (34.1-44.9); Hemoglobin 12.4 g/dL (11.2-15.7); IMMATURE GRAN # 0.02 x10^3u/L (0.001-0.031); IMMATURE GRAN % 0.3 % (0.001-0.429); Lymphocyte (Absolute #) 1.21 x10^3/uL (1.18-3.74); Mean Corpuscular Hemoglobin 32.0 pg (25.6-32.2); Mean Corpuscular Hgb Concent. 32.5 g/dL (32.2-35.5); Monocyte (Absolute #) 0.64 x10^3/uL (0.24-0.86); NUCLEATED RBC # 0.00 x10^3u/L (0.00-0.012); NUCLEATED RBC % 0.0 % (0.00-0.2); Platelet Count 224 x10^3/uL (182-369); Red Blood Count 3.87 x10^6/uL (3.93-5.22); White Blood Count 7.8 x10^3/uL (3.98-10.04)
[2025-03-09 05:43] LABS: Calcium 9.0 mg/dL (8.4-10.2); Carbon Dioxide 26.0 mmol/L (22-30); Creatinine 1 0.69 mg/dL (0.52-1.04); EST GLOMERULAR FILTRATION RATE 84.5 ML/MIN; Glucose 89.0 mg/dL (74-106); Potassium 4.0 mmol/L (3.5-5.1); SGOT/AST 22.0 U/L (14-36); SGPT/ALT 16.0 U/L (0-35); Total Protein 5.6 g/dL (6.3-8.2)
--- NOTE | 2025-03-09 11:48 | PCM.DS ---
Discharge Summary Date of Admission: 03/07/25 18:17 Date of Discharge: 03/09/25 Admitting Physician: JAYLA GROSS MD Primary Care Provider: KIERSTEN ALCANTARA Allergies Allergies No Known Drug Allergies Allergy (Unverified 03/07/25 12:59) Hospital Summary - Hospital Course Hospital Course: Ms. Hutchinson is an 84-year-old female with a history of hypertension, dementia, osteoarthritis, and recurrent falls who presented with nausea, decreased oral intake, and dysuria. Her history was limited by dementia, but family reported she had been unwell for three days and sustained a fall without loss of consciousness. On arrival, she was afebrile and hemodynamically stable. Laboratory workup revealed leukocytosis (11.7), mild LORAINE with creatinine elevated to 1.3 from her baseline of 0.9, and urinalysis consistent with infection. CBC was otherwise unremarkable. Imaging showed no acute process. She was empirically treated with IV ceftriaxone, IV fluids, and supportive care. During her hospitalization, nausea improved, leukocytosis normalized to 8.7, and renal function returned to baseline with creatinine 0.87. Urine culture ultimately grew E. coli, pansensitive. She remained clinically stable, afebrile, and tolerated oral intake. Physical therapy confirmed safe mobility with assistance, and she requested discharge. She will continue antibiotics at home, maintain hydration, and follow with her PCP. Outpatient PT will continue for gait instability and fall prevention. Discharge Note New Diagnosis: UTI New Medications: Cefdinir 300mg po bid x 7 days Follow Up: PCP Results pending: None Outpatient testing to order: Repeat UA I spent 35 minutes [id number] with the patient on the day of discharge performing discharge exam, discussing hospital stay and discharge instructions with patient and caregivers, preparation of discharge records, prescriptions & referral forms and addressing any questions/concerns the patient had as documented above. - Vitals & Intake/Output Vital Signs: Vital Signs Temperature 97.6 F 03/09/25 07:41 Pulse Rate 73 03/09/25 07:41 Respiratory Rate 18 03/09/25 07:41 Blood Pressure 128/61 03/09/25 07:41 O2 Sat by Pulse Oximetry 92 L 03/09/25 07:41 Intake & Output: Intake & Output 03/06/25 03/07/25 03/08/25 03/09/25 11:59 11:59 11:59 11:59 Intake Total 480 3042 Balance 480 3042 Weight 61.4 kg 60.2 kg - Lab Result Diagrams: 03/09/25 04:57 03/09/25 04:57 Lab Results-Last 24 Hrs: Lab Results-Last 24 Hours 03/08/25 03/08/25 03/09/25 Range/Units 13:30 17:25 04:57 WBC 7.8 (3.98-10.04) x10^3/uL RBC 3.87 L (3.93-5.22) x10^6/uL Hgb 12.4 (11.2-15.7) g/dL Hct 38.2 (34.1-44.9) % MCV 98.7 H (79.4-94.8) fL MCH 32.0 (25.6-32.2) pg MCHC 32.5 (32.2-35.5) g/dL RDW 12.7 (11.7-14.4) % Plt Count 224 (182-369) x10^3/uL MPV 10.6 (9.4-12.3) fL Gran % 72.9 H (34.0-71.1) % Immature Gran % (Auto) 0.3 (0.001-0.429) % Nucleat RBC Rel Count 0.0 (0.00-0.2) % Eos # (Auto) 0.20 (0.04-0.36) x10^3/uL Immature Gran # (Auto) 0.02 (0.001-0.031) x10^3u/L Absolute Lymphs (auto) 1.21 (1.18-3.74) x10^3/uL Absolute Monos (auto) 0.64 (0.24-0.86) x10^3/uL Absolute Nucleated RBC 0.00 (0.00-0.012) x10^3u/L Lymphocytes % 15.5 L (19.3-51.7) % Monocytes % 8.2 (4.7-12.5) % Eosinophils % 2.6 (0.7-5.8) % Basophils % 0.5 (0.1-1.2) % Absolute Granulocytes 5.68 (1.56-6.13) x10^3/uL Basophils # 0.04 (0.01-0.08) x10^3/uL Sodium (135-145) mmol/L Potassium 3.6 4.0 (3.5-5.1) mmol/L Chloride (98-107) mmol/L Carbon Dioxide (22-30) mmol/L Anion Gap (5-15) MEQ/L BUN (7-17) mg/dL Creatinine (0.52-1.04) mg/dL Estimated GFR ML/MIN Glucose (74-106) mg/dL Calcium (8.4-10.2) mg/dL Total Bilirubin (0.2-1.3) mg/dL AST (14-36) U/L ALT (0-35) U/L Alkaline Phosphatase (38-126) U/L Serum Total Protein (6.3-8.2) g/dL Albumin (3.5-5.0) g/dL 03/09/25 Range/Units 04:57 WBC (3.98-10.04) x10^3/uL RBC (3.93-5.22) x10^6/uL Hgb (11.2-15.7) g/dL Hct (34.1-44.9) % MCV (79.4-94.8) fL MCH (25.6-32.2) pg MCHC (32.2-35.5) g/dL RDW (11.7-14.4) % Plt Count (182-369) x10^3/uL MPV (9.4-12.3) fL Gran % (34.0-71.1) % Immature Gran % (Auto) (0.001-0.429) % Nucleat RBC Rel Count (0.00-0.2) % Eos # (Auto) (0.04-0.36) x10^3/uL Immature Gran # (Auto) (0.001-0.031) x10^3u/L Absolute Lymphs (auto) (1.18-3.74) x10^3/uL Absolute Monos (auto) (0.24-0.86) x10^3/uL Absolute Nucleated RBC (0.00-0.012) x10^3u/L Lymphocytes % (19.3-51.7) % Monocytes % (4.7-12.5) % Eosinophils % (0.7-5.8) % Basophils % (0.1-1.2) % Absolute Granulocytes (1.56-6.13) x10^3/uL Basophils # (0.01-0.08) x10^3/uL Sodium 136 (135-145) mmol/L Potassium 4.0 (3.5-5.1) mmol/L Chloride 108 H (98-107) mmol/L Carbon Dioxide 26 (22-30) mmol/L Anion Gap 6.7 (5-15) MEQ/L BUN 12 (7-17) mg/dL Creatinine 0.69 (0.52-1.04) mg/dL Estimated GFR 84.5 ML/MIN Glucose 89 (74-106) mg/dL Calcium 9.0 (8.4-10.2) mg/dL Total Bilirubin 0.60 (0.2-1.3) mg/dL AST 22 (14-36) U/L ALT 16 (0-35) U/L Alkaline Phosphatase 70 (38-126) U/L Serum Total Protein 5.6 L (6.3-8.2) g/dL Albumin 3.2 L (3.5-5.0) g/dL Micro Results-Entire Visit: Microbiology 03/07/25 15:47 Urine Culture - Final Clean Catch Midstream Escherichia Coli - Procedures and Test Procedures and Tests throughout Hospitalization: Therapy Orders & Screens 03/07/25 19:56 PT Eval & Treat ( Order) ONCE Reason for Eval:: weakness, history of falls and unsteady gait Diagnosis: Generalized weakness, urinary tract infection OT Eval and Treat ( Order) ONCE Comment: Physician Instructions: Reason For Exam: Diagnosis: Generalized weakness, urinary tract infection Discharge Exam General Appearance: no apparent distress Neurologic Exam: alert, cooperative, confusion Eye Exam: PERRL Ears, Nose, Throat Exam: normal ENT inspection Neck Exam: normal inspection Respiratory Exam: normal breath sounds, lungs clear Cardiovascular Exam: regular rate/rhythm, normal heart sounds Gastrointestinal/Abdomen Exam: soft, normal bowel sounds Pelvic Exam: deferred Rectal Exam: deferred Back Exam: normal inspection Extremity Exam: normal inspection Skin Exam: normal color Final Diagnosis/Problem List - Final Discharge Diagnosis/Problem (1) UTI (urinary tract infection) Current Visit: Yes Status: Acute Assessment & Plan: UA consistent with infection; initial WBC 11.7 - improved to 8.7 after treatment. Urine culture grew E. coli, pansensitive. Received IV ceftriaxone inpatient, transitioned to oral cefdinir 300mg po bid x 7 days at discharge. Plan: Continue cefdinir course, encourage hydration, monitor for recurrence, PCP follow-up. Code(s): N39.0 - URINARY TRACT INFECTION, SITE NOT SPECIFIED (2) LORAINE (acute kidney injury) Current Visit: Yes Status: Acute Assessment & Plan: Creatinine 1.3 (baseline 0.9), improved with IV fluids to wnl by discharge. Likely multifactorial: dehydration, infection. Plan: Avoid nephrotoxins (NSAIDs, contrast, high-dose diuretics), maintain hydration, monitor BMP outpatient. Code(s): N17.9 - ACUTE KIDNEY FAILURE, UNSPECIFIED (3) Frequent falls Current Visit: Yes Status: Acute Assessment & Plan: History of recurrent falls, including fall prior to admission. Patient participating in outpatient PT. Continue OP PT, medication review for sedating/orthostatic agents, encourage use of assistive devices as needed. Code(s): R29.6 - REPEATED FALLS (4) Generalized weakness Current Visit: Yes Status: Acute Assessment & Plan: Present on admission, improved with hydration and PT engagement. Continue mobilization, safe ambulation strategies, OP PT. Code(s): R53.1 - WEAKNESS (5) Leukocytosis Current Visit: Yes Status: Acute Assessment & Plan: Admission WBC 11.7 normalized to 7.8 Resolved with antibiotics and supportive care. No further inpatient intervention, monitor for infectious symptoms. Code(s): D72.829 - ELEVATED WHITE BLOOD CELL COUNT, UNSPECIFIED (6) Nausea Current Visit: Yes Status: Acute Assessment & Plan: resolved Code(s): R11.0 - NAUSEA (7) Dementia Current Visit: Yes Status: Chronic Code(s): F03.90 - UNSP DEMENTIA, UNSP SEVERITY, WITHOUT BEH/PSYCH/MOOD/ANX (8) Essential (primary) hypertension Current Visit: Yes Status: Chronic Code(s): I10 - ESSENTIAL (PRIMARY) HYPERTENSION - Discharge Discharge Date: 03/09/25 Disposition: Home, Self-Care Condition: Stable Prescriptions: New Cefdinir 300 mg [Omnicef 300 mg] 300 mg PO BID 7 Days #14 cap Continue Hydrochlorothiazide 25 mg [hydroDIURIL 25 MG] 25 mg PO DAILY Spironolactone 25 mg PO DAILY Metoprolol Tartrate 50 mg [Lopressor 50 MG] 50 mg PO DAILY Meloxicam 15 mg [Meloxicam 15 MG] 15 mg PO DAILY Additional Instructions: USE YOUR WALKER WHEN AMBULATING Follow up with: KIERSTEN ALCANTARA NP [Primary Care Provider, [facility]] - 03/15/25 1:00 pm
[2025-03-09 11:54] VITALS: BP 136/73; PULSE 69; RESP 16; TEMP 98.6; O2SAT 93
== END 2025-03-09 13:18 | disposition home or self-care (01) ==
LOC: ED 12:29 → MED SURG 18:17
PROVIDERS: ADMIT Internal Medicine; ATTEND Internal Medicine
DX: N39.0 Urinary tract infection, site not specified (principal); B96.20 Unspecified Escherichia coli [E. coli] as the cause of diseases classified elsewhere; E86.0 Dehydration; I10 Essential (primary) hypertension; F03.90 Unspecified dementia, unspecified severity, without behavioral disturbance, psychotic disturbance, mood disturbance, and anxiety; M19.90 Unspecified osteoarthritis, unspecified site; D72.829 Elevated white blood cell count, unspecified; N17.9 Acute kidney failure, unspecified; R29.6 Repeated falls; R53.1 Weakness; R11.0 Nausea; E87.6 Hypokalemia; Z79.899 Other long term (current) drug therapy
CPT/HCPCS: 36415; 80053; 81001; 83880; 84132; 84484; 85025; 87077; 87086; 87186; 93005; 93041; 94760; 96365; 97161; 97165; 97530; 99285; Q3014